=== PATIENT | female | born 1945 | race Caucasian/White ===

== ENCOUNTER 2019-12-12 11:53 | Emergency (ER) | payer MEDICARE ==
[2019-12-12 12:33] VITALS: BP 104/87
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
== END 2019-12-12 13:27 | disposition home or self-care (01) ==
LOC: UCCORT 11:53
DX: M25.811 Other specified joint disorders, right shoulder (principal); I10 Essential (primary) hypertension; W00.0XXA Fall on same level due to ice and snow, initial encounter; Y92.9 Unspecified place or not applicable; Z79.899 Other long term (current) drug therapy; Z91.09 Other allergy status, other than to drugs and biological substances; Z88.2 Allergy status to sulfonamides; Z88.0 Allergy status to penicillin; Z91.011 Allergy to milk products; Z91.013 Allergy to seafood; Z91.012 Allergy to eggs; Z88.6 Allergy status to analgesic agent
CPT/HCPCS: 99211; G0463